=== PATIENT | female | born 1940 | race Caucasian/White ===

== ENCOUNTER 2017-12-15 10:40 | Inpatient (IN) | payer MEDICARE, OTHER ==
[~2017-12-15] VITALS: Ht 162.6 cm; Wt 57.5 kg
[2017-12-15 11:15] VITALS: BP_SYST 166; BP_SYST 175; BP_DIAS 72; BP_DIAS 85
[2017-12-15 11:24] VITALS: BP 149/69
[2017-12-15] MEDS ORDERED: BUPIVACAINE/PF-EPI 0.5% 1:200K ONE (14:03)
[2017-12-15] MEDS ORDERED: SODIUM CHLORIDE 0.9% 100 ML ONE (14:03)
[2017-12-15] MEDS ORDERED: THROMBIN 20,000 UNIT VIAL TP ONE (14:03)
[2017-12-15] MEDS ORDERED: METHYLENE BLUE 10 MG/ML 10ML ONE (14:03)
[2017-12-15] MEDS ORDERED: VANCOMYCIN 1,000 MG ONE (14:03)
[2017-12-15] MEDS ORDERED: BACITRACIN 50,000 UNIT ONE (14:06)
[2017-12-15] MEDS ORDERED: methylPREDNISolone SOD SUCC 40 MG/ML ONE (14:24)
[2017-12-15] MEDS ORDERED: FENTANYL PF 100 MCG/2ML ONE ×2 (14:24→14:29)
[2017-12-15] MEDS ORDERED: HYDROCORTISONE 100 MG INJ. ONE (14:26)
[2017-12-15] MEDS ORDERED: GLYCOPYRROLATE 0.2MG/1ML, 5ML ONE (14:29)
[2017-12-15] MEDS ORDERED: NEOSTIGMINE 1 MG/ML, 10ML ONE (14:29)
[2017-12-15] MEDS ORDERED: PROPOFOL 10 MG/ML, 20ML ONE (14:29)
[2017-12-15] MEDS ORDERED: ONDANSETRON 2MG/ML, 2ML ONE (14:29)
[2017-12-15] MEDS ORDERED: ROCURONIUM 10MG/ML,5ML ONE (14:29)
[2017-12-15] MEDS ORDERED: BUPIVACAINE/PF-EPI 0.5% 1:200K INFIL ONE (14:58)
[2017-12-15] MEDS ORDERED: ACETAMINOPHEN 325 MG TABLET PO PRN (15:30)
[2017-12-15] MEDS ORDERED: MORPHINE SULFATE 4 MG/ML, 1ML IVPush PRN (15:30)
[2017-12-15] MEDS ORDERED: hydrALAzine 20 MG/ML, 1ML IV PRN (15:30)
[2017-12-15] MEDS ORDERED: OXYcodone 5 MG/5 ML ORAL.SOL UDC PO PRN (15:30)
[2017-12-15] MEDS ORDERED: PROMETHAZINE 25 MG/ML, 1ML IV PRN (15:30)
[2017-12-15] MEDS ORDERED: LABETALOL 5MG/ML, 20ML IV PRN (15:30)
[2017-12-15] MEDS ORDERED: FENTANYL PF 100 MCG/2ML IV PRN (15:30)
[2017-12-15] MEDS ORDERED: ONDANSETRON 2MG/ML, 2ML IV PRN (15:30)
[2017-12-15] MEDS ORDERED: HYDROmorphone 2 MG/ML, 1ML ONE (15:53)
[2017-12-15] MEDS ORDERED: DIPHENHYDRAMINE 50 MG/ML, 1ML IVPush PRN (16:00)
[2017-12-15] MEDS ORDERED: MAGNESIUM HYDROXIDE 8%, 30ML UDC PO PRN (16:00)
[2017-12-15] MEDS ORDERED: SENNA/DOCUSATE TABLET PO PRN (16:00)
[2017-12-15] MEDS ORDERED: PROMETHAZINE 25 MG/ML, 1ML IM PRN (16:00)
[2017-12-15] MEDS ORDERED: DIAZEPAM 5 MG TABLET PO PRN (16:00)
[2017-12-15] MEDS ORDERED: TIZANIDINE 4MG TABLET PO PRN (16:00)
[2017-12-15] MEDS ORDERED: HYDROmorphone 1 MG/ML, 1ML IVPush PRN (16:00)
[2017-12-15] MEDS ORDERED: PHARMACY MAY ADJ FOR RENAL FX MC PRN (16:00)
[2017-12-15] MEDS: HYDROmorphone 1 MG/ML, 1ML IV PRN ×4 (16:00→16:38)
[2017-12-15] MEDS ORDERED: BISACODYL 10 MG SUPP PR PRN (16:00)
[2017-12-15] MEDS: NS + 20MEQ KCL 1,000 ML IV SCH (17:39)
[2017-12-15 19:50] VITALS: BP 117/60
[2017-12-15] MEDS: ONDANSETRON 2MG/ML, 2ML IVPush PRN (20:18)
[2017-12-15] MEDS: SODIUM CHLORIDE FLUSH 10ML SYR IVF SCH (20:23)
[2017-12-15] MEDS: ACETAMINOPHEN 325 MG TABLET PO PRN (21:32)
[2017-12-15 23:56] VITALS: BP 115/81
[2017-12-16] MEDS: NS + 20MEQ KCL 1,000 ML IV SCH ×3 (03:00→23:00)
[2017-12-16 04:35] VITALS: BP 135/75
[2017-12-16] MEDS: ACETAMINOPHEN 325 MG TABLET PO PRN ×4 (06:06→22:21)
[2017-12-16 07:55] VITALS: BP 133/73
[2017-12-16] MEDS: SODIUM CHLORIDE FLUSH 10ML SYR IVF SCH ×2 (09:00→20:21)
[2017-12-16] MEDS: ONDANSETRON 2MG/ML, 2ML IVPush PRN (09:05)
[2017-12-16 14:00] VITALS: BP 156/68
[2017-12-16 19:19] VITALS: BP 166/68
[2017-12-17 01:10] VITALS: BP 163/70
[2017-12-17] MEDS: ACETAMINOPHEN 325 MG TABLET PO PRN ×5 (02:22→21:51)
[2017-12-17 07:32] VITALS: BP 163/83
[2017-12-17] MEDS: SODIUM CHLORIDE FLUSH 10ML SYR IVF SCH ×2 (09:00→21:52)
[2017-12-17 13:52] VITALS: BP 162/94
[2017-12-17] MEDS: NS + 20MEQ KCL 1,000 ML IV SCH (15:56)
[2017-12-17 19:49] VITALS: BP 168/78
[2017-12-18] MEDS: NS + 20MEQ KCL 1,000 ML IV SCH ×3 (02:00→22:00)
[2017-12-18 02:04] VITALS: BP 183/81
[2017-12-18 07:52] VITALS: BP 156/80
[2017-12-18] MEDS: ACETAMINOPHEN 325 MG TABLET PO PRN ×2 (09:46→21:03)
[2017-12-18] MEDS: SODIUM CHLORIDE FLUSH 10ML SYR IVF SCH ×2 (09:46→21:03)
[2017-12-18 13:45] VITALS: BP 155/98
[2017-12-18 20:43] VITALS: BP 176/77
[2017-12-19 03:47] VITALS: BP 178/75
[2017-12-19] MEDS ORDERED: HYDROmorphone 2 MG/ML, 1ML ONE (04:02)
[2017-12-19] MEDS: NS + 20MEQ KCL 1,000 ML IV SCH (08:00)
[2017-12-19 08:34] VITALS: BP 155/85
[2017-12-19] MEDS: ACETAMINOPHEN 325 MG TABLET PO PRN ×2 (08:37→13:59)
[2017-12-19] MEDS: SODIUM CHLORIDE FLUSH 10ML SYR IVF SCH (08:37)
[2017-12-19 13:25] VITALS: BP 176/82
[2017-12-19] MEDS ORDERED: AMLO10TA6 PO (14:15)
[2017-12-19] MEDS ORDERED: ZOLP5TAB PO (14:15)
[2017-12-19] MEDS ORDERED: OMEP20CA14 PO (14:15)
[2017-12-19] MEDS ORDERED: CLON0.1T PO (14:15)
[2017-12-19] MEDS ORDERED: ATOR20TA9 PO (14:15)
[2017-12-19] MEDS ORDERED: DULO30CA4 PO (14:15)
[2017-12-19] MEDS ORDERED: LOSA50TA7 PO (14:15)
[2017-12-19] MEDS ORDERED: LOSARTAN 50MG TABLET PO SCH (15:00)
[2017-12-19] MEDS ORDERED: AMLODIPINE 5 MG TABLET PO SCH (15:00)
[2017-12-19] MEDS ORDERED: TRAM50TA2 PO (16:14)
[2017-12-19] MEDS ORDERED: TIZA2TAB PO (16:15)
[2017-12-19] MEDS ORDERED: ONDA4TAB7 PO (16:15)
[2017-12-19] MEDS ORDERED: ACET325T14 PO (16:18)
[2017-12-19] MEDS ORDERED: BISA10SU2 PR (16:19)
[2017-12-19] MEDS ORDERED: DIAZ5TAB PO (16:20)
[2017-12-19] MEDS ORDERED: [UNRECOGNIZED DRUG - CODE] PO (16:22)
== END 2017-12-19 16:50 | DRG 517 ==
LOC: 4NOR 10:40 → EDSTATUS 14:00
PROVIDERS: ADMIT Neurological Surgery; ATTEND Neurological Surgery
PROC: 01NB0ZZ Release Lumbar Nerve, Open Approach (ICD-10-PCS; principal; 2017-12-15 14:00)
DX: M48.061 Spinal stenosis, lumbar region without neurogenic claudication (principal); M71.30 Other bursal cyst, unspecified site; I10 Essential (primary) hypertension; F10.20 Alcohol dependence, uncomplicated; Z96.652 Presence of left artificial knee joint; Z88.8 Allergy status to other drugs, medicaments and biological substances; Z88.1 Allergy status to other antibiotic agents; Z88.0 Allergy status to penicillin; Z82.49 Family history of ischemic heart disease and other diseases of the circulatory system; Z81.8 Family history of other mental and behavioral disorders
CPT/HCPCS: 72100; 88305; G0378; J1170; J2405; J2704; J2710; J3010; J3370; J3480; J3490; J1720; J2920; Q9968